=== PATIENT | female | born 1995 | race Hispanic/Latino ===

== ENCOUNTER 2021-03-26 13:27 | Emergency (ER) | payer SELFPAY ==
[2021-03-26 14:15] LABS: Absolute Lymphocytes (CBC) 2.9 K/uL (0.7-4.9); Hematocrit 36.4 % (36.0-45.0); Lymphocytes % 31.1 % (15.3-44.8); MPV 8.5 fL (7.6-11.3); RBC Red Blood Cell Count 4.15 M/uL (3.86-4.86)
[2021-03-26 14:48] LABS: BUN Blood Urea Nitrogen 8 mg/dL (7-18); Bicarbonate 25 mmol/L (21-32); Glucose Level 93 mg/dL (74-106); HCG, Quantitative 124997 mIU/mL (1-3); Potassium 3.9 mmol/L (3.5-5.1); Sodium Level 136 mmol/L (136-145)
--- NOTE | 2021-03-26 15:56 | RAD REPORT ---
EXAM DESCRIPTION: US - Transvaginal OB - 03/26/2021 3:09 pm CLINICAL HISTORY: VAGINAL BLEEDING COMPARISON: No comparisons FINDINGS: Single IUP identified. Small subchorionic hemorrhage is noted. This measures less than 25% of the surface area of the gestational sac. The crown-rump length measures 1.9 cm which is consisten t with 8 week 1 day. The right ovary is volume of 1.7 cc. Left ovary is volume of 10.9 cc. Vascular flow is present bilate rally. IMPRESSION: Single IUP with positive heart tones measuring 8 week 1 day with estimated deliver y of 11/04/2021. Small subchorionic hemorrhage typically of little clinical significance. Bilateral o varian blood flow.
--- NOTE | 2021-03-26 16:00 | EDPHYS ---
Physician Documentation [facility] Name: Mae Nielson Age: 25 yrs Sex: Female : 1995 Arrival Date: 03/26/2021 Time: 13:31 Bed 9 Private MD: ED Physician Andre Jauregui HPI: 03/26 14:49 This 25 yrs old Female presents to ER via Ambulatory with complaints of kb Vaginal Bleeding, + Preg <12wks. 14:49 The patient presents to the emergency department with vaginal bleeding, described as kb spotting. The estimated gestational age is 9 weeks. course: care: none. Previous pregnancies: in previous pregnancies patient has had. Associated signs and symptoms: Pertinent positives: vaginal bleeding. The patient has not experienced similar symptoms in the past. The patient has not recently seen a physician. SPIRAL WINDER: 14:49 2, 1, Living 0, LMP 01/21/2021 kb Historical: - Allergies: 13:37 No Known Allergies; ll1 - PMHx: 13:37 None; ll1 - PSHx: 13:37 D\T\C; ll1 - Immunization history:: Client reports receiving the 2nd dose of the Covid vaccine. - Social history:: Smoking status: Patient denies any tobacco usage or history of. ROS: 14:49 Constitutional: Negative for fever, chills, and weight loss. kb 14:49 : Positive for vaginal bleeding. 14:49 All other systems are negative. Exam: 14:49 Constitutional: This is a well developed, well nourished patient who is awake, alert, kb and in no acute distress. Head/Face: Normocephalic, atraumatic. ENT: Moist Mucous membranes Cardiovascular: Regular rate and rhythm with a normal S1 and S2. No gallops, murmurs, or rubs. No pulse deficits. Respiratory: Respirations even and unlabored. No increased work of breathing. Talking in full sentences Abdomen/GI: Soft, non-tender. No distention Skin: Warm, dry with normal turgor. Normal color. MS/ Extremity: Pulses equal, no cyanosis. Neurovascular intact. Full, normal range of motion. Neuro: Awake and alert, GCS 15, oriented to person, place, time, and situation. Moves all extremities. Normal gait. Psych: Awake, alert, with orientation to person, place and time. Behavior, mood, and affect are within normal limits. Vital Signs: 13:35 BP 117 / 75; Pulse 83; Resp 16; Temp 98.3; Pulse Ox 100% ; Height 5 ft. 7 in. (170.18 ll1 cm); Pain 5/10; 16:04 BP 107 / 59; Pulse 73; Resp 16; Pulse Ox 99% on R/A; ic1 MDM: 13:33 Patient medically screened. kb 14:49 Data reviewed: vital signs, nurses notes. Data interpreted: Pulse oximetry: on room air kb is 100 %. Interpretation: normal. 15:59 Counseling: I had a detailed discussion with the patient and/or guardian regarding: the kb historical points, exam findings, and any diagnostic results supporting the discharge/admit diagnosis, lab results, radiology results, the need for outpatient follow up, an OB/Gyne specialist, to return to the emergency department if symptoms worsen or persist or if there are any questions or concerns that arise at home. 03/26 13:38 Order name: Abo/rh Typing; Complete Time: 14:52 kb 03/26 13:38 Order name: Basic Metabolic Panel; Complete Time: 14:48 kb 03/26 13:38 Order name: CBC with Diff; Complete Time: 14:23 kb 03/26 13:38 Order name: Quantitative Hcg; Complete Time: 14:48 kb 03/26 14:26 Order name: Urine --Ancillary (enter results); Complete Time: 14:44 eb 03/26 14:58 Order name: ABO/RH no charge; Complete Time: 15:07 EDMS 03/26 13:38 Order name: IV Saline Lock; Complete Time: 14:00 kb 03/26 13:38 Order name: Labs collected and sent; Complete Time: 14:00 kb 03/26 13:38 Order name: NPO; Complete Time: 14:18 kb 03/26 13:38 Order name: Urine Dipstick-Ancillary (obtain specimen); Complete Time: 14:25 kb 03/26 13:38 Order name: Urine Test (obtain specimen); Complete Time: 14:27 kb 03/26 13:38 Order name: US Transvaginal Ob; Complete Time: 15:59 kb Administered Medications: No medications were administered Disposition Summary: 03/26/21 16:00 Discharge Ordered Location: Home kb Condition: Stable kb Diagnosis - Threatened kb Followup: kb - With: Emergency Department - When: As needed - Reason: Worsening of condition Followup: kb - With: Private Physician - When: 2 - 3 days - Reason: Recheck today's complaints, Continuance of care, Re-evaluation by your physician Discharge Instructions: - Discharge Summary Sheet kb - Subchorionic Hematoma kb - Threatened Miscarriage, [id number] kb - Vaginal Bleeding During , First Trimester, [id number] kb Forms: - Medication Reconciliation Form kb - Thank You Letter kb - Antibiotic Education kb - Prescription Opioid Use kb Addendum: 03/28/2021 07:08 Co-signature as Attending Physician, Andre Jauregui MD I agree with the assessment and c barboza plan of care. Signatures: Dispatcher [employer] EDIsaura Benavidez, LEATHER BELT MAKER-C LEATHER BELT MAKER-Andre Jean MD MD cha Lewis, Lynsay, RN RN ll1 Corrections: (The following items were deleted from the chart) 03/26 13:37 13:37 PSHx: None; ll1 ll1
--- NOTE | 2021-03-26 16:00 | ER ---
Nurse's Notes [facility] Name: Mae Nielson Age: 25 yrs Sex: Female : 1995 Arrival Date: 03/26/2021 Time: 13:31 Bed 9 Private MD: Diagnosis: Threatened Presentation: 03/26 13:35 Chief complaint: Patient states: 9 weeks . Spotting started today. G2, P0. LMP: ll1 Feb 21. Coronavirus screen: Vaccine status: At this time, the client does not indicate any symptoms associated with coronavirus-19. Ebola Screen: Patient denies travel to an Ebola-affected area in the 21 days before illness onset. Initial Sepsis Screen: Does the patient have a suspected source of infection? Yes: Other: spotting. Risk Assessment: Do you want to hurt yourself or someone else? Patient reports no desire to harm self or others. Onset of symptoms was March 26, 2021. 13:35 Method Of Arrival: Ambulatory ll1 13:35 Acuity: ALIYAH 3 ll1 ELECTRICAL AND RADIO MECHANIC: 14:49 2, 1, Living 0, LMP 01/21/2021 kb Historical: - Allergies: 13:37 No Known Allergies; ll1 - PMHx: 13:37 None; ll1 - PSHx: 13:37 D\T\C; ll1 - Immunization history:: Client reports receiving the 2nd dose of the Covid vaccine. - Social history:: Smoking status: Patient denies any tobacco usage or history of. Screenin:44 Abuse screen: Denies threats or abuse. Denies injuries from another. Nutritional ic1 screening: No deficits noted. Tuberculosis screening: No symptoms or risk factors identified. Fall Risk None identified. Assessment: 14:07 Obstetrical Assessment: General assessment: awake and alert, Patient reports abdominal ic1 cramping, Abdominal pain, Spotting that started on today. Pt 9 weeks iup. A1. Denies burning during urination or fever. Pt also c/o abd pain. AAO3. GCS 15. . General: Appears in no apparent distress. Behavior is calm, cooperative. Pain: Complains of pain in abdomen. Neuro: No deficits noted. Cardiovascular: No deficits noted. Respiratory: No deficits noted. GI: No deficits noted. : Reports vaginal bleeding that is spotty, since yesterday Denies burning with urination, discharge, urinary frequency, urgency. EENT: No deficits noted. Derm: No deficits noted. Musculoskeletal: No deficits noted. 14:38 Reassessment: Pt transported to ultrasound via wheelchair. Denies distress at this time.ic1 Vital Signs: 13:35 BP 117 / 75; Pulse 83; Resp 16; Temp 98.3; Pulse Ox 100% ; Height 5 ft. 7 in. (170.18 ll1 cm); Pain 5/10; 16:04 BP 107 / 59; Pulse 73; Resp 16; Pulse Ox 99% on R/A; ic1 ED Course: 13:31 Patient arrived in ED. as 13:33 Isaura Wilkinson FNP-C [facility]. kb 13:33 Andre Jauregui MD is Attending Physician. kb 13:37 Triage completed. ll1 13:37 Arm band placed on. ll1 13:44 Patient has correct armband on for positive identification. Bed in low position. Call ic1 light in reach. 13:59 Inserted saline lock: 20 gauge in left antecubital area, using aseptic technique. Blood tp1 collected. 14:37 Abo/rh Typing Sent. ic1 15:09 US Transvaginal Ob In Process Unspecified. EDMS 15:42 Marah Goldman, KATALINA is Primary Nurse. ic1 16:04 IV discontinued, intact, bleeding controlled, No redness/swelling at site. Pressure ic1 dressing applied. Administered Medications: No medications were administered Outcome: 16:00 Discharge ordered by MD. kb 16:04 Discharged to home ambulatory, with family. ic1 16:04 Condition: stable 16:04 Discharge instructions given to patient, Instructed on discharge instructions, follow up and referral plans. Demonstrated understanding of instructions, follow-up care. 16:20 Patient left the ED. ic1 Signatures: Dispatcher [employer] EDMS Isaura Wilkinson FNP-C FNP-Sophie Miller Lynsay, KATALINA RN ll1 Brenda Quach tp1 Marah Goldman, KATALINA RN ic1 Corrections: (The following items were deleted from the chart) 13:37 13:37 PSHx: None; ll1 ll1 13:46 13:44 BP 132 / 87; Pulse 86bpm; Resp 20bpm; Pulse Ox 100% RA; Temp 97.9F Oral; ic1 ic1
[2021-03-26 17:15] VITALS: TEMP 98.3
[2021-03-26 17:19] VITALS: BP 107/59; O2SAT 99
[2021-03-29 08:51] LABS: Urine Blood Negative (Negative); Urine Glucose Negative (Negative); Urine Protein Negative (Negative)
== END 2021-03-26 16:20 | disposition home or self-care (01) ==
LOC: ER 13:27
DX: O20.0 Threatened abortion (principal)
CPT/HCPCS: 36415; 76817; 80048; 81003; 81025; 84702; 85025; 86900; 86901; 99283